=== PATIENT | female | born 1995 | race Caucasian/White ===

== ENCOUNTER 2017-07-08 19:20 | Inpatient (IN) ==
--- OUTSIDE RECORDS SUMMARY | 2017-07-08 16:59 | External Medical Summary | Continuity of Care Document ---
:1995 Author Organization [facility] Address [address] [place], [place] [id number] Phone Allergies, Adverse Reactions, Alerts Substance Reaction Severity Status No Known Drug Allergies Unknown Active Medications Medication Instructions Dosage Effective Status Comments Dates (start - stop) OneTouch Ultra2 check by Not Available - Active please provide kit Misc.(Non-Drug; meter suitable Combo Route) route for blood sugar BID, insurance--Dx fasting and 2 code: O24.419, hours after each gestational meal diabetes Lancets, Super - Active lancets to go Thin with meter given Blood Glucose test 1 Drop by Not Available - Active to go with meter Test strips Intradermal route provided. 4 times every day fasting and postprandial ORAL - Active TABLET Problems Condition Effective Dates (start - stop) Clinical Status Pre-existing diabetes, type 2, in - , third trimester Obesity complicating , third - trimester 32 weeks gestation of - Nicotine dependence, cigarettes, - uncomplicated Obesity complicating , first - trimester Encntr for suprvsn of normal first - preg, first trimester Less than 8 weeks gestation of - Thrombocytopenia, unspecified - Pre-existing diabetes, type 2, in - , third trimester Obesity complicating , third - trimester 33 weeks gestation of - Morbid (severe) obesity due to excess - calories Pre-exist diabetes, type 2, in - , second trimester 24 weeks gestation of - Gestational proteinuria, third - trimester Pre-existing diabetes, type 2, in - , third trimester Encntr for suprvsn of normal first - preg, third trimester 32 weeks gestation of - Gestational proteinuria, third - trimester Pre-existing diabetes, type 2, in - , third trimester Encntr for suprvsn of normal first - preg, third trimester 31 weeks gestation of - Pre-existing diabetes, type 2, in - , first trimester Obesity complicating , first - trimester Smoking (tobacco) complicating - , first trimester 13 weeks gestation of - Pre-exist diabetes, type 2, in - , second trimester Spotting complicating , - second trimester Obesity complicating , second - trimester 24 weeks gestation of - Pre-exist diabetes, type 2, in - , second trimester Spotting complicating , - second trimester Obesity complicating , second - trimester Endo, nutritional and metab diseases - comp preg, unsp tri Pre-exist diabetes, type 2, in - , second trimester 19 weeks gestation of - Pre-existing diabetes, type 2, in - , third trimester Spotting complicating , third - trimester Obesity complicating , third - trimester 28 weeks gestation of - Pre-existing diabetes, type 2, in - , third trimester 34 weeks gestation of - Pre-existing diabetes, type 2, in - , third trimester Obesity complicating , third - trimester Endo, nutritional and metab diseases - comp preg, third tri 29 weeks gestation of - Pre-existing diabetes, type 2, in - , third trimester Abnormal ultrasonic finding on - screening of mother 32 weeks gestation of - Pre-existing diabetes, type 2, in - , third trimester Oth dis of bld/bld-form org/immun - mechnsm comp preg, 3rd tri Endo, nutritional and metab diseases - comp preg, third tri 34 weeks gestation of - Pre-existing diabetes, type 2, in - , third trimester Obesity complicating , third - trimester Endo, nutritional and metab diseases - comp preg, third tri 31 weeks gestation of - Pre-existing diabetes, type 2, in - , third trimester 32 weeks gestation of - Pre-existing diabetes, type 2, in - , third trimester 33 weeks gestation of - Gestational diabetes mellitus in - , unsp control Spotting complicating , first - trimester Obesity complicating , first - trimester 10 weeks gestation of - Spotting complicating , first - trimester 9 weeks gestation of - Asthma Active GERD Active Depression Active Migraines Active Procedures Procedure Date biophys prfl w/o nstress test Results Test Name Date and Time Measure Units Reference Range Abnormal Flag Comments Unknown Advance Directives Directive Yes / No Effective Date File Name Unknown Encounters Encounter Practice Location Reason(s) Diagnoses Date Provider Care Team Description For Visit Members [facility] Pre-existing Sobbing In Womens diabetes, type 2, 2-201 formerly [facility], in , [address] Medical [address]22, trimesterOth dis [facility], of bld/bld-form Drive, [place], org/immun mechnsm [id number], comp preg, 3rd 120, [place] triZiyad Hernandez, tel:[phone] nutritional [place], [address] metab diseases [address], comp preg, third [place]. tri34 weeks tel:+1-31 gestation of [phone] [facility] Pre-existing Tyrel-2 Sobbing In Womens Ultrasound diabetes, type 2, 2 [facility], in , [address] third [email or web address] Medical 1522, weeks gestation [place], [place], [address] [id number], 120, [place], tel:+316 [place], [address], [place]. tel: [phone] [facility] Thrombocytopenia, Tyrel-1 Sobbing In Womens unspecifiedPre-ex [facility], isting diabetes, 8 700 [address] type 2, in Medical 1522, , [facility] [place] [place], complicating [id number], , third 120, [place] [email or web address] weeks Ziyad, tel:+ [place], [address], [place]. tel: [phone] [facility] Pre-existing Tyrel-1 Sobbing In Womens Ultrasound diabetes, type 2, Gian. Nathaniel FONTANA, in , 8 700 [address] third [email or web address] Medical 1522, weeks gestation [place], [address] [id number], 120, [place], tel:+316 [place], [address], [place]. tel: [phone] [facility] Pre-existing Tyrel-0 Sobbing In Womens diabetes, type 2, Gian. Nathaniel FONTANA, in , 8 700 [address] third Medical 1522, trimesterAbnormal Center [place], [place], finding on [address] , 120, [place] screening of [place], tel:[phone] [email or web address] [place] [address], [place]. tel: [phone] [facility] Pre-existing Tyrel-0 Sobbing In Womens Ultrasound diabetes, type 2, [facility], in , 8 700 [address] third [email or web address] Medical 1522, weeks gestation [place], [place], [address] [id number], 120, [place] Ziyad, tel:+316 [place], [address], [place]. tel: [phone] [facility] Gestational Tyrel-0 Sobbing In Womens proteinuria, 3- [facility], third 8 700 PO Box trimesterPre-exis Medical 1522, ting diabetes, [facility] [place], type 2, in [place], , third [id number], trimesterEncntr 120, [place] for suprvsn of Ziyad, tel:+316 normal first [place], preg, third [address], [email or web address] weeks [place]. gestation of tel:[phone] [facility] Pre-existing Tyrel-0 Sobbing In Womens Ultrasound diabetes, type 2, [facility], in , 8 700 [address] third Medical 1522, trimesterObesity Center [place], [place], , third [id number], [email or web address] weeks 120, [place] gestation of Ziyad, tel:+316 MD, 8437[address], [place]. tel: [phone] [facility] Gestational Dec-2 Sobbing In Womens proteinuria, [facility], third 7 700 PO Box trimesterPre-exis Medical 1522, ting diabetes, [facility], type 2, in [place], , third [id number], trimesterEncntr 120, [place] for suprvsn of [place], tel:+316 normal first [place], preg, third [address], [email or web address] weeks [place]. gestation of tel:[phone] [facility] Pre-existing Dec-2 Sobbing In Womens Ultrasound diabetes, type 2, [facility], in , 7 700 [address] third Medical 1522, trimesterObesity Center [place], , third [id number], trimesterEndo, 120, [place] nutritional and Ziyad, tel:[phone] metab diseases [place], comp preg, third [address], tri31 weeks [place]. gestation of tel:[phone] [facility] Pre-existing Dec-1 Sobbing Referring In Womens diabetes, type 2, [place]. Provider: Nathaniel FONTANA, in , 7 700 Gian [address] third Medical Sobbing L, 1522, trimesterObesity Center [address] [place] [address], [facility] [place], , third Suite Center [id number], trimesterEndo, 120, Drive US nutritional and [place], [address], tel: metab diseases [place], [place], comp preg, third [address], [place], [address]. tri29 weeks [place]. tel: gestation of tel: [phone] [facility] Pre-existing Dec-1 Sobbing In Womens Ultrasound diabetes, type 2, 8-201 [facility], in , 7 700 [address] third Medical 1522, trimesterSpotting [place], complicating [place], [place], , third [address] [id number], trimesterObesity 120, [place] complicating [place], tel: , third MD, [email or web address] weeks [address], gestation of [place]. tel: [phone] [facility] Morbid (severe) Nov-2 Sobbing In Womens obesity due to 0-201 [facility], excess 7 700 PO Box caloriesPre-exist Medical 1522, diabetes, type 2, [facility], in , Drive, [place], second [id number], weeks 120, [place] gestation of [place], [place]: [place], [address], [place]. tel: [phone] [facility] Pre-exist Nov-2 Sobbing In Womens Ultrasound diabetes, type 2, 0-201 [facility], in , 7 700 [address] second Medical 1522, trimesterSpotting Center [place], [facility] [place], , second [id number], trimesterObesity 120, [place] complicating Ziyad, tel: , second MD, [email or web address] weeks [address], gestation of [place]. tel: [phone] [facility] Pre-exist Oct-1 Sobbing Referring In Womens diabetes, type 2, 9-201 Gian. Provider: [facility], in , 7 700 Gian PO Box second Medical Sobbing L, 1522, trimesterSpotting Center [address] [place] [address], complicating [facility], [facility] [place], , second Suite Center [id number], trimesterObesity 120, Drive [place] complicating [place], [address], tel: , second MAUREEN, [place], trimesterEndo, [address], [place], [address]. nutritional and [place]. tel: metab diseases tel: [phone] comp preg, unsp [id number] tri [facility] Pre-exist Oct-1 Sobbing In Womens Ultrasound diabetes, type 2, [facility], in , 7 700 PO Box second Medical 1522, [email or web address] weeks [facility], gestation of [place], [place], [address] [id number], 120, [place] Ziy[place], [place]: [place], [address], [place]. tel: [phone] [facility] Pre-existing Sep-0 Sobbing In Womens diabetes, type 2, [facility], in , 7 700 PO Box first Medical 1522, trimesterObesity [place], [place], , first [address] [id number], trimesterSmoking 120, [place] (tobacco) Ziyad, tel: complicating MD, , first [address], [email or web address] weeks [place]. gestation of tel: [phone] [facility] Gestational Aug-1 Sobbing In Womens diabetes mellitus [facility], in , 7 700 [address] unsp Medical 1522, controlSpotting [place], , first [id number], trimesterObesity 120, [place] complicating [place], tel: , first MD, [email or web address] weeks [address], gestation of [place]. tel: [phone] [facility] Aug-1 Sobbing In Womens - [facility], 7 700 [address] Medical 1522, [place], [place], [address] [id number], 120, [place], [place]: [place], [address], [place]. tel: [phone] [facility] Spotting Aug-0 Sobbing In Womens complicating [facility], , first 7 700 PO Box trimester9 weeks Medical 1522, gestation of [place], [place], [address] [id number], 120, [place] Ziyad, tel: [place], [address], [place]. tel: [phone] [facility] Nicotine Sobbing In Womens dependence, 7-201 [facility] [place], cigarettes, 7 700 PO Jesus [facility] 1522, [facility] [place], , first Drive, [place], trimesterEncntr [id number], for suprvsn of 120, [place] normal first Ziyad, tel:+[phone] preg, first MAUREEN, [id number] trimesterLess [address], than 8 weeks [place]. gestation of tel: [phone] Family History Family Member Diagnosis Age At Onset Paternal Grandmother Uterine Cancer Paternal Grandfather Cardiovascular Disease Paternal Grandmother Thyroid Disorder Immunizations Vaccine Date Status Comments Tdap completed Source: New Immunization Record Influenza, injectable, completed Source: New Immunization Record quadrivalent, preservative free, 3 yrs or older Payers Payer name Insurance type Covered green party ID Authorization(s) [facility] - [id number] Medicaid [employer] - [id number] Medicaid [employer] - [place] [id number] Medicaid Social History Type Description Quantity Date Captured Unknown Vital Signs Date / Height Weight BMI Pulse Blood Temperature Respiratory Body Head BMI Time: Rate Pressure Rate Surface Circumference percentile Area Unknown Chief Complaint And Reason For Visit Unknown Chief Complaint And Reason For Visit Reason For Referral Reason For Referral Unknown Plan Of Care Date Type Action Status Referral Referred To: ordered Jaciel Dinh [address] [place] [address] Dr. JOHN Lee [facility] [place] Ordered: Referrals: Ophthalmology. Jaciel Dinh. Consult Appointment date/timeframe: 02/26/2017 Referral Referred To: ordered Jaciel Dinh [address] [place] [address] Dr. JOHN Lee [facility] [place] Ordered: Referrals: Ophthalmology. Jaciel Dinh. Location: [place]. Consult Appointment date/timeframe: 02/21/2017 Appointment Hermes Baker BOOKED Appointment Hermes Baker BOOKED Appointment Hermes Baker BOOKED Appointment Hermes Baker BOOKED Appointment Hermes Baker BOOKED Appointment Hermes Baker BOOKED Future Order: Radiology Order Biophysical Profile without NST Ordered ([id number]) Future Order: Radiology Order Ultrasound, OB Limited ([id number]) Ordered Future Order: Radiology Order Complete OB Ultrasound > 14 Ordered Weeks ([id number]) Future Order: Radiology Order Ultrasound OB Follow-up ([id number]) Ordered Future Order: Radiology Order Biophysical Profile without NST Ordered ([id number]) Future Order: Radiology Order Biophysical Profile without NST Ordered ([id number]) Future Order: Radiology Order Biophysical Profile without NST Ordered ([id number]) Future Order: Radiology Order Biophysical Profile without NST Ordered ([id number]) Future Order: Radiology Order Biophysical Profile without NST Ordered ([id number]) Future Order: Radiology Order Ultrasound OB Follow-up ([id number]) Ordered Future Order: Radiology Order Biophysical Profile without NST Ordered ([id number]) Date Type Problem Goal Intervention Status Start Date Unknown. History Of Present Illness Encounter Date Complaint History Of Present Illness This patient has no known history of present illness Functional Status Encounter Date Functional Assessment Cognitive Assessment Unknown Medications Administered Medication Instructions Dosage Effective Dates (start - stop) Status Comments Drug Treatment Unknown Instructions Date Instruction Additional Information HIV and other routine tests risk factors identified by history anticipated course of care nutrition and weight gain counseling, special diet toxoplasmosis precautions (cats / raw meat) sexual activity exercise indications for ultrasound influenza vaccine environmental / work hazards travel tobacco (ask, advise, assess, assist and arrange) alcohol illicit / recreational drugs use of any medications (including supplements, vitamins, herbs, OTC drugs) smoking counseling domestic violence seat belt use childbirth classes / hospital facilities hospital registration genetic testing new ob handbook risks
--- OUTSIDE RECORDS SUMMARY | 2017-07-08 16:59 | External Medical Summary | Continuity of Care Document ---
:1995 Author Organization [facility] Address [address] [place], [place] [id number] Phone Allergies, Adverse Reactions, Alerts Substance Reaction [...] Effective Dates (start - stop) Clinical Status Nicotine dependence, cigarettes, - uncomplicated Obesity complicating , first - trimester Encntr for suprvsn of normal first - preg, first trimester Less than 8 weeks gestation of - Gestational diabetes mellitus in - , unsp control Spotting complicating , first - trimester Obesity complicating , first - trimester 10 weeks gestation of - Spotting complicating , first - trimester 9 weeks gestation of - Asthma Active GERD Active Depression Active Migraines Active Procedures Procedure Date OB US < 14 WKS, SINGLE FETUS Initial OB Visit No Charge Results Test Name Date and Time Measure Units Reference Range Abnormal Flag Comments Panel Description: Glucose [Mass/volume] in Serum or Plasma --1 hour post 50 g glucose PO GLUCOSE, 161 mg/dL <140 H One hour value of > GESTATIONAL SCREEN 11:00:00 yh=214 mg/dL indicatesthe (50G)-140 CUTOFF need for a diagnostic 75 g dose 2-hour or100 g dose 3-hour oral glucose tolerance test;patient fasting is required.Test performed at [facility] [id number] [place] [id number]: IWONA MANUEL DO,MPH Panel Description: CHLAMYDIA/N. GONORRHOEAE RNA, TMA CHLAMYDIA NOT DETECTED NOT DETECTED N TRACHOMATIS RNA, 09:05:00 TMA NEISSERIA NOT DETECTED NOT DETECTED N GONORRHOEAE RNA, 09:05:00 TMA [id number] SEE NOTE This test was 09:05:00 performed using the APTIMA COMBO2 Assay([employer] The analytical performance characteristics of this assay, when used to test SurePath specimens havebeen determined by [facility]. Test performed at [facility] [address] [id number]: IWONA MANUEL DO,MPH Advance Directives Directive Yes / No Effective Date File Name Unknown Encounters Encounter Practice Location Reason(s) Diagnoses Date Provider Care Description For Visit Team Members Bassam [place] Gestational diabetes Aug-1 Sobbing In Womens mellitus [place] [facility] [place], , unsp 7 700 [address] controlSpotting Medical 1522, complicating [facility], [place], [place], trimesterObesity Suite , complicating 120, [place] , first Ziyad, tel:+ [email or web address] [place], [place] [address], [place]. tel: [phone] Bassam [place] Aug-1 Sobbing In Womens [facility] [place], 7 700 [address] Medical 1522, [place], [place], [address] [id number], 120, [place] Ziyad, tel:+ [place], [address], [place]. tel: [phone] Bassam [place] Spotting complicating Aug-0 Sobbing In Womens , first [facility] [place], trimester9 weeks 7 700 PO Box gestation of Medical 1522, Center [place], [place], [address] [id number], 120, [place], [place]: [place], [address], [place]. tel: [phone] Bassam [place] Nicotine dependence, Sobbing In Womens cigarettes, 7-[address], uncomplicatedObesity 7 700 [address] Box complicating Medical 1522, , first Center [place], trimesterEncntr for [place], [place], suprvsn of normal [id number], first preg, first 120, [place] trimesterLess than 8 [place], tel:+ [place], [address], [place]. tel: [phone] Family History Family Member Diagnosis Age At Onset Paternal Grandmother Uterine Cancer Paternal Grandfather Cardiovascular Disease Paternal Grandmother Thyroid Disorder Immunizations Vaccine Date Status Comments Unknown Payers Payer name Insurance type Covered green party ID Authorization(s) [facility] - [id number] Medicaid Social History Type Description Quantity Date Captured Alcohol Use Details Caffeine Use Details Tobacco Use Status Heavy cigarette smoker (20-39 cigs/day) Smoking Status Current every day smoker Smoking Tobacco Use Cigarette: No Details Available Cigarette: 1 Packs per day Details Vital Signs Date / Height Weight BMI Pulse Blood Temperature Respiratory Body Head BMI Time: Rate Pressure Rate Surface Circumference percentile Area 174.00 35.1 lbs 4 9:02 kg/m AM eter (2) Chief Complaint And Reason For Visit Unknown Chief Complaint And Reason For Visit Reason For Referral Reason For Referral Unknown Plan Of Care Date Type Action Status Appointment Hermes Baker BOOKED Appointment Hermes Baker BOOKED Date Type Problem Goal Intervention Status Start [...]
--- OUTSIDE RECORDS SUMMARY | 2017-07-08 17:01 | External Medical Summary | Continuity of Care Document ---
:1995 Author Organization [facility] Address [address] [place], [place] [id number] Phone Allergies, Adverse Reactions, Alerts Substance Reaction [...] Effective Dates (start - stop) Clinical Status Pre-exist diabetes, type 2, in - , second trimester 19 weeks gestation of - Nicotine dependence, cigarettes, - uncomplicated Obesity complicating , first - trimester Encntr for suprvsn of normal first - preg, first trimester Less than 8 weeks gestation of - Pre-existing diabetes, type 2, in - , first trimester Obesity complicating , first - trimester Smoking (tobacco) complicating - , first trimester 13 weeks gestation of - Pre-exist diabetes, type 2, in - , second trimester Spotting complicating , - second trimester Obesity complicating , second - trimester Endo, nutritional and metab diseases - comp preg, unsp tri Gestational diabetes mellitus in - , unsp control Spotting complicating , first - trimester Obesity complicating , first - trimester 10 weeks gestation of - Spotting complicating , first - trimester 9 weeks gestation of - Asthma Active GERD Active Depression Active Migraines Active Procedures Procedure Date Ultrasound exam of preg uterus, complete Results Test Name Date and Time Measure Units Reference Range Abnormal Flag Comments Unknown Advance Directives Directive Yes / No Effective Date File Name Unknown Encounters Encounter Practice Location Reason(s) Diagnoses Date Provider Care Team Description For Visit Members Bassam [place] Pre-exist Oct-1 Sobbing Referring In Womens diabetes, type 2, [place]. Provider: Nathaniel FONTANA, in , 7 700 [place] [address] second Medical Sobbing L, 1522, trimesterSpotting Center [address] [place], [place] [address]icating [facility], , second Suite Center [id number], trimesterObesity 120, Drive [place] complicating [facility] [address], tel: , second [place], [place], [place]End[place], [address], [place], [address]. nutritional and [place]. tel: metab diseases tel: [phone] comp preg, unsp [id number] tri Bassam [place] Pre-exist Oct-1 Sobbing In Womens Ultrasound diabetes, type 2, [place]. Nathaniel FONTANA, in , 7 700 [address] second Medical 1522, [email or web address] weeks [facility], gestation of [place], [place], [address] [id number], 120, [place], [place], [address], [place]. tel: [phone] Bassam [place] Pre-existing Sep-0 Sobbing In Womens diabetes, type 2, [place]. Nathaniel FONTANA, in , 7 700 [address] first Medical 1522, trimesterObesity [facility], complicating [place], [place], , first [address] [id number], trimesterSmoking 120, [place] (tobacco) [place], tel:+ complicating [place], , first [address], [email or web address] weeks [place]. gestation of tel: [phone] Bassam [place] Gestational Aug-1 Sobbing In Womens diabetes mellitus 5-201 [place], in , 7 700 [address] unsp Medical 1522, controlSpotting [facility], complicating [place], [place], , first [id number], trimesterObesity 120, [place] complicating [place], tel: , first [place], [email or web address] weeks [address], gestation of [place]. tel: [phone] Bassam [place] Aug-1 Sobbing In Womens 1-201 [place], 7 700 [address] Medical [address], [place], [place], [id number], 120, [place], [place], [address], [place]. tel: [phone] Bassam [place] Spotting Aug-0 Sobbing In Womens complicating 8-201 [place], , first 7 700 PO [address] trimester9 weeks Medical 1522, gestation of [facility], [place], [place], [address] [id number], 120, [place], [place], [address], [place]. tel: [phone] Bassam [place] Nicotine Adam-2 Sobbing In Womens dependence, 7-201 [place], cigarettes, 7 700 [address] uncomplicatedObes Medical 1522, ity complicating [facility], , first Drive, [place], trimesterEncntr [address] [id number], for suprvsn of 120, [place] normal first [place], tel: preg, first [place], trimesterLess [address], than 8 weeks [place]. gestation of tel: [phone] Family History Family Member Diagnosis Age At Onset Paternal Grandmother Uterine Cancer Paternal Grandfather Cardiovascular Disease Paternal Grandmother Thyroid Disorder Immunizations Vaccine Date Status Comments Influenza, injectable, completed Source: New Immunization Record quadrivalent, preservative free, 3 yrs or older Payers Payer name Insurance type Covered libertarian ID Authorization(s) [facility] - [id number] Medicaid [facility] - [id number] Medicaid Social History Type Description Quantity Date [...] Status Referral Referred To: ordered Jaciel Dinh [address] [place] [address] Dr. JOHN Lee [address] [place] Ordered: Referrals: Ophthalmology. Jaciel Dinh. Consult Appointment date/timeframe: 02/26/2017 Referral Referred To: ordered Jaciel Dinh [address] [place] [address] Dr. JOHN Lee [address] [place] Ordered: Referrals: Ophthalmology. Jaciel Dinh. Location: [place]. Consult Appointment date/timeframe: 02/21/2017 Appointment Samuel, Dikrlir BOOKED Appointment Samuel, Taylir BOOKED Appointment Samuel, Taylir BOOKED Appointment Samuel, Taylir BOOKED Appointment Samuel, Taylir BOOKED Appointment Samuel, Taylir BOOKED Appointment Samuel, Taylir BOOKED Appointment Samuel, Taylir BOOKED Appointment Samuel, Taylir BOOKED Appointment Samuel, Taylir BOOKED Appointment Samuel, Taylir BOOKED Appointment Samuel, Taylir BOOKED Appointment Samuel, Taylir BOOKED Appointment Samuel, Taylir BOOKED Appointment Samuel, Taylir BOOKED Appointment Samuel, Taylir BOOKED Appointment Samuel, Taylir BOOKED Appointment Samuel, Taylir BOOKED Appointment Samuel, Taylir BOOKED Appointment Samuel, Taylir BOOKED Future Order: Radiology Order Complete OB Ultrasound > 14 Ordered Weeks ([id number]) Date Type Problem Goal Intervention Status Start [...]
--- OUTSIDE RECORDS SUMMARY | 2017-07-08 17:01 | External Medical Summary | Continuity of Care Document ---
:1995 Author Organization [facility] Address [address] [place], [place] [phone] Phone Allergies, Adverse Reactions, Alerts Substance Reaction [...] Depression Active Migraines Active Procedures Procedure Date Unknown Results Test Name Date and Time Measure Units Reference Range Abnormal Flag Comments Unknown Advance Directives Directive Yes / No Effective Date File Name Unknown Encounters Encounter Practice Location Reason(s) Diagnoses Date Provider Care Description For Visit Team Members Bassam Lackey Gestational diabetes Aug-1 Sobbing In Womens mellitus in 5 [place], , unsp 7 700 PO [address] controlSpotting Medical 1522, complicating Center [place], , first [facility], [place], trimesterObesity [id number], complicating 120, [place] , first [place], tel:+ [email or web address] weeks [place], [place] [address], [place]. tel: [phone] [facility] [place] Aug-1 Sobbing In Womens 1-201 [place], 7 700 [address] Medical [address], [place], [place], [address] [id number], 120, [place], tel:+316 [place], [address], [place]. tel: [phone] [facility] [place] Aug-1 Sobbing In Womens 0-201 [place], 7 700 [address] Medical [address], [place], [place], [address] [id number], 120, [place], tel:+ [place], [address], [place]. tel: [phone] [facility] [place] Spotting complicating Aug-0 Sobbing In Womens , first 8- [place], trimester9 weeks 7 700 PO Box gestation of Medical 1522, [place], [place], [address] [id number], 120, [place], tel:+ [place], [address], [place]. tel: [phone] [facility] [place] Nicotine dependence, Sobbing In Womens cigarettes, [place], uncomplicatedObesity 7 700 [address] Box complicating Medical 1522, , first [facility], trimesterEncntr for [place], [place], suprvsn of normal [address] [id number], first preg, first 120, [place] trimesterLess than 8 [place], tel:+ [place] [address], [place]. tel: [phone] Family History Family Member Diagnosis Age At Onset Paternal Grandmother Uterine Cancer Paternal Grandfather Cardiovascular Disease Paternal Grandmother Thyroid Disorder Immunizations Vaccine Date Status Comments Unknown Payers Payer name Insurance type Covered constitution party ID Authorization(s) [facility] - [id number] Medicaid Social History Type Description Quantity Date Captured Unknown Vital Signs Date / Height Weight BMI Pulse Blood Temperature Respiratory Body Head BMI Time: Rate Pressure Rate Surface Circumference percentile Area Unknown Chief Complaint And Reason For Visit Unknown Chief Complaint And Reason For Visit Reason For Referral Reason For Referral Unknown Plan Of Care Date Type Action Status Appointment Samuel Deborahhsamar BOOKED Date Type Problem Goal Intervention Status [...]
--- OUTSIDE RECORDS SUMMARY | 2017-07-08 17:01 | External Medical Summary | Continuity of Care Document ---
:1995 Author Organization [facility] Address [address] [place], [place] [id number] Phone Allergies, Adverse Reactions, Alerts Substance Reaction [...] second trimester 19 weeks gestation of - Gestational diabetes mellitus [...] Reference Range Abnormal Flag Comments Panel Description: Thyroxine (T4) free [Mass/volume] in Serum or Plasma T4, FREE 14:46:00 1.0 ng/dL 0.8-1.8 N Test performed at [facility] [id number] [place] [address]Cvdqzazh: IWONA MANUEL DO,MPH Panel Description: Thyrotropin [Units/volume] in Serum or Plasma TSH 14:46:00 0.35 mIU/L L Reference Range > or=20 Years 0.40-4.50 Ranges First trimester 0.26-2.66 Second trimester 0.55-2.73 Third trimester 0.43-2.91Test performed at [facility] [place] [id number]: IWONA MANUEL DO,MPH Panel Description: Triiodothyronine (T3) Free [Mass/volume] in Serum or Plasma T3, FREE 14:46:00 3.1 pg/mL 2.3-4.2 N REPORT COMMENT:COPY TO DR SHORE:NOTest performed at [facility] [id number] [place] [id number]: IWONA MANUEL DO,MPH Advance Directives Directive Yes / No Effective Date File Name Unknown Encounters Encounter Practice Location Reason(s) Diagnoses Date Provider Care Team Description For Visit Members Bassam Lackey Pre-exist Sobbing Referring In Womens diabetes, type 2, 9-201 [place]. Provider: Health [place], in , 7 700 [facility] Box second Medical Sobbing L, 1522, trimesterSpotting Center [address] [place], complic[address], Medical [place], , second Suite Center [id number], trimesterObesity 120, Drive [place] complicating [place], [address], tel: , second [place], [place], trimesterEndo, [address], [place], [address]. nutritional and [place]. tel: metab diseases tel: [phone] comp preg, unsp [id number] tri [facility] [place] Pre-exist Oct-1 Sobbing In Womens Ultrasound diabetes, type 2, [place], in , 7 700 [address] second Medical 1522, [email or web address] weeks [facility], gestation of [place], [place], [address] [id number], 120, [place], [place]: [place], [address], [place]. tel: [phone] Bassam Lackey Oct-1 Sobbing In Womens [place], 7 700 [address] Medical [address], [place], [place], [address] [id number], 120, [place], [place], [address], [place]. tel: [phone] Bassam Lackey Pre-existing Sep-0 Sobbing In Womens diabetes, type 2, [place], in , 7 700 PO Box first Medical 1522, trimesterObesity [place], [place], , first Suite , trimesterSmoking 120, [place] (tobacco) [place], tel: complicating [place], , first [address], weeks [place]. gestation of tel: [phone] Bassam Lackey Gestational Aug-1 Sobbing In Womens diabetes mellitus [place], in , 7 700 [address] unsp Medical 1522, controlSpotting [place], , first [address] [id number], trimesterObesity 120, [place] complicating [place], tel: , first [place], [email or web address] weeks [address], gestation of [place]. tel: [phone] Bassam [place]key Aug-1 Sobbing In Womens [place], 7 700 [address] Medical [address], [place], [place], [address] [id number], 120, [place], [place]: [place], [address], [place]. tel: [phone] Bassam [place] Spotting Aug-0 Sobbing In Womens complicating [place], , first 7 700 PO Box trimester9 weeks Medical 1522, gestation of [facility], [place], [place], [address] [id number], 120, [place], [place], [address], [place]. tel: [phone] Bassam [place] Nicotine Dec- Sobbing In Womens dependence, [place], cigarettes, 7 700 [address] Box uncomplicatedObes Medical 1522, ity complicating Center [place], , first [place], [place], trimesterEncntr [address] [id number], for suprvsn of 120, [place] normal first [place], tel: preg, first [place], trimesterLess [address], than 8 weeks [place]. gestation of tel: [phone] Family History Family Member Diagnosis Age At Onset Paternal Grandmother Uterine Cancer Paternal Grandfather Cardiovascular Disease Paternal Grandmother Thyroid Disorder Immunizations Vaccine Date Status Comments Influenza, injectable, completed Source: New Immunization Record quadrivalent, preservative free, 3 yrs or older Payers Payer name Insurance type Covered green party ID Authorization(s) [facility] - [id number] Medicaid [facility] [id number] Medicaid Social History Type Description Quantity Date [...] Status Referral Referred To: ordered Jaciel Dinh Dr. [address] [place] Ordered: Referrals: Ophthalmology. Jaciel Dinh. Consult Appointment date/timeframe: 02/26/2017 Referral Referred To: ordered Jaciel Dinh [facility] Dr. JOHN Lee [address] [place] Ordered: Referrals: Ophthalmology. Jaciel Dinh. Location: [place]. Consult Appointment date/timeframe: 02/21/2017 Appointment Hermes BakerED Appointment Samuel Dirklir BOOKED Appointment Samuel Dirklir BOOKED Appointment Samuel Dirklir BOOKED Appointment Samuel Dirklir BOOKED Appointment Samuel Dirklir BOOKED Appointment Samuel Dirklir BOOKED Appointment Samuel Dirklir BOOKED Appointment Samuel Dirklir BOOKED Appointment Samuel Dirklir BOOKED Appointment Samuel Dirklir BOOKED Appointment Samuel Dirklir BOOKED Appointment Samuel Dirklir BOOKED Appointment Samuel Dirklir BOOKED Appointment Samuel Dirklir BOOKED Appointment Samuel Dirklir BOOKED Appointment Samuel Dirkaleksr BOOKED Appointment Samuel Dirkaleksr BOOKED Appointment Samuel Dirklir BOOKED Appointment Samuel Deborahr BOOKED Future Order: Radiology Order Complete OB Ultrasound > 14 Ordered Weeks ([id number]) Date Type Problem Goal Intervention Status Start [...]
[2017-07-08] MEDS ORDERED: LIDOCAINE 1% (10mg/ml) 2mL INJ PF SDV ID PRN ×2 (19:38→19:47)
[2017-07-08] MEDS ORDERED: CALCIUM CARBONATE Chewable 500mg TABLET PO PRN (19:38)
[2017-07-08] MEDS ORDERED: LR 1,000 ML IV PRN (19:38)
[2017-07-08] MEDS ORDERED: CARBOPROST 250 MCG/ML INJECTION IM PRN (19:38)
[2017-07-08] MEDS ORDERED: MAG-AL + SIM ORAL LIQUID 30ml PO PRN (19:38)
[2017-07-08] MEDS ORDERED: METHYLERGONOVINE 0.2 MG/ML INJECTION IM PRN (19:38)
[2017-07-08] MEDS ORDERED: ACETAMINOPHEN 500 MG TABLET PO PRN (19:38)
[2017-07-08] MEDS ORDERED: ZOLPIDEM 5 MG TABLET PO PRN (19:42)
[2017-07-08] MEDS ORDERED: SALINE FLUSH 10ml SYRINGE IV PRN (19:42)
[2017-07-08] MEDS ORDERED: HYDROCODONE/APAP 5mg/325mg TABLET PO PRN (19:42)
[2017-07-08] MEDS ORDERED: CALCIUM GLUCONATE 4.65mEq/10ml INJECTION IV PRN (19:47)
[2017-07-08] MEDS ORDERED: CITRIC ACID/SODIUM CITRATE 30ml PO PRN (19:47)
[2017-07-08] MEDS ORDERED: MAGNESIUM SULFATE 6gm PREMIX 6 GM/50 ML BAG IV ONE (20:00)
[2017-07-08] MEDS: MAGNESIUM SULFATE DRIP 20 GM/500 ML BAG IV SCH (20:36)
[2017-07-08 21:18] VITALS: BMI 41.5
--- NOTE | 2017-07-08 21:29 | OB/GYN Progress Note ---
- Pain Control Pain control: Tolerating well - Pelvic Exam Dilation (cm): 1 Effacement (%): 60 station: -3 Amniotic membrane status: Intact - Contractions Monitor mode: External Contraction frequency: 3 Contraction pattern: Regular Contraction intensity: Mild - Status status: Category l - Assessment and Plan Assessment: induction ongoing Comments: Preeclampsia with sever features. Elevated BP along with proteinuria and elevated LFT. Thrombocytopenia C/W with 05/2017 132 and then 151 06/2017. Discussed diagnosis including risk of eclampsia, HEELP. Discussed R/B/A to IOL questions elicited and answered. - FB for cervical ripening - Pitocin IOL to start in am - MGSO4 for seizure prophylaxis -ANCS for prematurity -Repeat lab q 6 hours until delivery, no NSIADS after delivery, will treat BP greater than 160/105, APLS, TSH, UDOA Pregestational DM non insulin dependent, 2 [address] PP tonclement and Dr. Cross for orders in am.
[2017-07-08] MEDS ORDERED: BETAMETHASONE 30 MG/5 ML INJECTION IM SCH (21:45)
[2017-07-09] MEDS ORDERED: OXYTOCIN DRIP 30 UNIT/500 ML ML IV PRN (05:00)
[2017-07-09] MEDS ORDERED: AMPICILLIN 2 GM in NS 100 ML IV ONE (05:00)
[2017-07-09] MEDS ORDERED: D5LR 1,000 ML IV PRN (05:00)
[2017-07-09] MEDS: MAGNESIUM SULFATE DRIP 20 GM/500 ML BAG IV SCH ×2 (06:00→15:30)
--- NOTE | 2017-07-09 08:43 | OB/GYN Progress Note ---
- Pain Control Pain control: Tolerating well - Pelvic Exam Dilation (cm): 3 Effacement (%): 60 station: -3 Amniotic membrane status: Intact - Contractions Monitor mode: External Contraction frequency: 3 Contraction pattern: Irregular Contraction intensity: Mild - Status status: Category l - Assessment and Plan Assessment: induction ongoing Plan: continuous present management Comments: FB out, Pitocin at 14 unit. AROM clear fluid, IUPC placed. PIH lab reviewed, continue current cares.
[2017-07-09] MEDS ORDERED: AMPICILLIN 1 GM in NS 100 ML IV SCH (09:00)
[2017-07-09] MEDS ORDERED: LABETALOL 100mg/20ml INJECTION IVP ONE ×2 (10:05→10:15)
[2017-07-09] MEDS ORDERED: ROPIVACAINE 1% 10MG/ML INJ 200 MG, SUFentanil 50 MCG in NS 100 ML EPI PRN (10:08)
[2017-07-09] MEDS ORDERED: ONDANSETRON 4 MG/2 ML INJECTION IVP PRN ×2 (10:08→18:14)
[2017-07-09] MEDS ORDERED: NALOXONE 0.4 MG/ML INJECTION IVP PRN (10:08)
[2017-07-09] MEDS ORDERED: DiphenhydrAMINE 50 MG/ML INJECTION IVP PRN (10:08)
--- NOTE | 2017-07-09 10:13 | Anesthesia Preoperative Report ---
Anesthesia Epidural/Spinal Rec - Date and Time Date: 07/09/17 Preoperative Diagnosis: PIH and gestational diabetes Procedure: Labor Epidural Plan: Epidural - Vital Signs NPO since: 429 /Para: P:0 Heart Rate: 125 - Medictaions & Allergies Inpatient Medications: Current Medications Acetaminophen (Tylenol) 500 - 1,000 mg PO Q4H PRN PRN Reason: Pain Last Admin: 07/08/17 22:53 Dose: 1,000 mg Hydrocodone Bitart/Acetaminophen (Blanco 5/325) 1 - 2 tab PO Q4H PRN PRN Reason: Pain Al Hydroxide/Mg Hydroxide (Maalox Plus) 30 ml PO Q3H PRN PRN Reason: Indigestion Betamethasone Acet/Betameth SodPhos (Celestone Soluspan) 12 mg IM O AURA Stop: 07/09/17 21:33 Last Admin: 07/08/17 22:52 Dose: 12 mg Calcium Carbonate (Tums) 500 - 1,000 mg PO Q2H PRN PRN Reason: Indigestion Calcium Gluconate (Calcium Gluconate) 4.65 meq IV O PRN Carboprost Tromethamine (Hemabate) 250 mcg IM O PRN PRN Reason: .Downtime Citric Acid/Sodium Citrate (Oracit) 30 ml PO Q2H PRN Diphenhydramine HCl (Benadryl) 25 - 50 mg IVP Q3H PRN PRN Reason: Itching Lactated Ringer's (Lactated Ringers) 1,000 mls @ 999 mls/hr IV .Q1H1M PRN Last Admin: 07/08/17 21:15 Dose: 999 mls/hr Magnesium Sulfate (Magnesium Sulfate Drip) 20 gm in 500 mls @ 50 mls/hr IV .Q10H AURA PRN Reason: 2 G/HR Last Infusion: 07/09/17 05:10 Dose: Infused Dextrose/Lactated Ringer's (Dextrose 5%-Lactated Ringers) 1,000 mls @ 125 mls/ hr IV .Q8H PRN PRN Reason: Labor Last Admin: 07/09/17 05:00 Dose: 125 mls/hr Oxytocin (Pitocin Drip) 30 unit in 500 mls @ 2 mls/hr IV .Q24H PRN; Protocol PRN Reason: Induction/Augmentation Last Admin: 07/09/17 04:57 Dose: 2 mls/hr Ampicillin Sodium 1 gm/ Sodium (Chloride) 100 mls @ 200 mls/hr IV Q4H AURA Ropivacaine 200 mg/ Sufentanil Citrate 50 mcg/ Sodium Chloride 121 mls @ 10 mls /hr EPI PRN PRN PRN Reason: Protocol Labetalol HCl (Trandate) 20 mg IVP O ONE Stop: 07/09/17 10:06 Lidocaine HCl (Xylocaine-Mpf 1% Vial) 0.2 mg ID O PRN PRN Reason: IV Start Lidocaine HCl (Xylocaine-Mpf 1% Vial) 1 mg ID PRN PRN PRN Reason: IV Start Methylergonovine Maleate (Methergine) 0.2 mg IM O PRN Misoprostol (Cytotec) 800 mcg AL ONCE PRN Naloxone HCl (Narcan) 0.1 mg IVP Q2M PRN PRN Reason: Respiratory distress Ondansetron HCl (Zofran) 4 mg IVP Q6H PRN PRN Reason: Nausea &/or vomiting Sodium Chloride (Iv Flush) 10 - 80 ml IV PRN PRN PRN Reason: Flushing Zolpidem Tartrate (Ambien) 5 mg PO O PRN PRN Reason: Insomnia Last Admin: 07/08/17 22:53 Dose: 5 mg Allergies/Adverse Reactions: Allergies Allergy/AdvReac Type Severity Reaction Status Date / Time varenicline [From Chantix] Allergy sucidal Verified 07/01/17 13:11 thoughts - Home Medications Home Medications: Home Medications Medication Instructions Recorded Confirmed Type tab PO DAILY tab 02/14/17 07/01/17 History vitamin,calcium,kqrkbrhf-zrzq-qszfh acid tablet aspirin 81 mg tablet,delayed 81 mg PO DAILY 05/30/17 07/01/17 History release Glucophage (metformin) 500 mg 500 mg PO QID tab 07/01/17 History tablet Tylenol PRN 07/08/17 History - Medical History Respiratory: Reports: Asthma (has inhaler) Cardiovascular: Reports: Hypertension Gastrointestional: Reports: Gastroesophageal Reflux Disease, Morbid Obesity Neuro/Musculoskeletal: Reports: Depression (off meds since 2016) Renal/Endocrine: Reports: Diabetes Mellitus Type 2 (gestational diabetes with blood sugar of 101), Other (gestational diabetes) Other History: Reports: Now - Surgical History Musculoskeletal Surgery/Tx: Reports: Carpal Tunnel Release (bilateral 2017) Reproductive Surgery/Treatment: DENIES: Section Anesthesia Reactions: None Hx Family Anesthesia Reaction: No History of Motion Sickness: No - Social History Smoking Status: Former smoker Second Hand Exposure: No Substance Use Type: does not use Alcohol Intake: former Alcohol Intake Frequency: does not drink Hx Chewing Tobacco Use: No - Pertinent Findings Lab Data: CBC and BMP 07/09/17 05:46 07/09/17 05:46 BMP 07/08/17 07/08/17 07/09/17 17:15 22:56 05:46 Sodium 138 137 135 Potassium 3.8 3.8 4.0 Chloride 108 H 105 106 Carbon Dioxide 22 20 L 19 L BUN 9.0 8.0 7.0 Creatinine 0.5 L 0.5 L 0.5 L Glucose 83 91 196 H Calcium 9.6 9.3 8.4 D Liver Function 07/08/17 07/08/17 07/09/17 Range/Units 17:15 22:56 05:46 Total Bilirubin < 0.10 L < 0.10 L 0.20 (0.20-1.30) MG/DL AST 29 31 36 (14-36) U/L ALT 62 H 59 H 68 H (9-52) U/L Alkaline Phosphatase 176 H 185 H 196 H (38-126) U/L Albumin 3.6 3.7 3.6 (3.5-5.0) G/DL - Physical Exam Respiratory Exam: lungs clear Cardiovascular Exam: regular rate and rhythm - Airway Assessment Mallampati Score: II TMD: 3 Fingerbreadths Neck Extension: fair Overall Assessment: may be difficult intubation - ASA ASA Score: 3 - Discussion Discussion: Discussed risks/options/alternatives of anesthesia and questions answered. Patient consents. Nursing pain assessment noted. Anesthesia Discussion: family member Attestation Statement: Prior to the delivery of any anesthetic medication, I examined the patient, developed the plan, obtained the patient's consent and discussed the risk and benefits of the procedure with the patient/guardian.
--- NOTE | 2017-07-09 11:05 | OB/GYN Progress Note ---
- Pain Control Pain control: Epidural - Pelvic Exam Dilation (cm): 5 Effacement (%): 80 station: -3 Amniotic membrane status: Ruptured - Contractions Monitor mode: Internal Contraction frequency: 2 Contraction pattern: Irregular Contraction intensity: Strong/Firm - Status status: Category l - Assessment and Plan Assessment: induction ongoing
[2017-07-09] MEDS ORDERED: FAMOTIDINE PB 20 MG/50 ML BAG IV ONE ×2 (12:57→13:01)
[2017-07-09] MEDS ORDERED: CITRIC ACID/SODIUM CITRATE 30ml PO ONE ×2 (12:57→13:01)
[2017-07-09] MEDS ORDERED: CEFAZOLIN PREMIX (MC ONLY) 2 GM/50 ML BAG IV ONE (12:57)
[2017-07-09] MEDS ORDERED: CEFAZOLIN 1 G INJECTION IVP ONE (12:57)
[2017-07-09] MEDS ORDERED: AZITHROMYCIN IV 500 MG in NS 250ml 250 ML IV ONE (12:57)
[2017-07-09] MEDS ORDERED: TRANEXAMIC ACID 1,000 MG in NS 100 ML IV ONE (13:01)
[2017-07-09] MEDS ORDERED: LIDOCAINE 2%/EPI 1:200,000 20ml SDV PF ONE (13:13)
[2017-07-09] MEDS: CEFAZOLIN PREMIX (MC ONLY) 2 GM/50 ML BAG IV ONE (13:14)
[2017-07-09] MEDS ORDERED: MORPHINE SULFATE PF 5mg/10ml INJ (Duramorph) ONE (13:16)
[2017-07-09] MEDS ORDERED: ONDANSETRON 4 MG/2 ML INJECTION ONE (13:49)
--- NOTE | 2017-07-09 14:12 | Operative Note ---
Operative Note - Date of Operation Date of Operation: 07/09/17 - General : 1 Estimated or Known Gestational Age (weeks): 35 Estimated or Known Gestational Age (days): 6 - Preoperative Diagnosis Nonreassuring FHT Preoperative Diagnosis: Severe preeclampsia DM type 2 Obesity - Postoperative Diagnosis same as preoperative - Procedure Primary - Surgeon Surgeon: Gian Eddy DO - Costumed Character Entertainer OB Costumed Character Entertainer: Delilah Angeles MD - Anesthesia Anesthesia Provider: Garfield Fuller CRNA - Complications Complications: None - Estimated Blood Loss Estimated Blood Loss:: 600 - Findings Findings: viable female - APGARS : 6/6/9 - Weight [place] Weight (grams): 2304 - [place] Name Name: Julita - Indications Indications: nonreasuring FHT, Failed IOL - Description of Procedure Description of Procedure: REF# [id number] Report ID [id number]
[2017-07-09] MEDS ORDERED: HYDROCORTISONE 2.5% CREAM 30gm RECTALLY PRN (14:34)
[2017-07-09] MEDS ORDERED: NALOXONE 2 MG/2 ML INJECTION PFS IVP PRN (14:34)
[2017-07-09] MEDS ORDERED: CALCIUM CARBONATE Chewable 500mg TABLET PO PRN (14:34)
[2017-07-09] MEDS ORDERED: SIMETHICONE 80 MG CHEWABLE TABLET PO PRN (14:34)
[2017-07-09] MEDS ORDERED: DiphenhydrAMINE 25 MG CAPSULE PO PRN (14:34)
[2017-07-09] MEDS ORDERED: OXYTOCIN DRIP 30 UNIT/500 ML ML IV SCH (14:34)
[2017-07-09] MEDS ORDERED: OXYTOCIN BOLUS BAG 30 UNIT/500 ML ML IV SCH (15:15)
[2017-07-09] MEDS: IBUPROFEN 800 MG TABLET PO PRN ×2 (15:39→23:55)
[2017-07-09] MEDS: D5LR 1,000 ML IV SCH (15:42)
--- NOTE | 2017-07-09 16:56 | Operative Note ---
DATE OF SERVICE 07/09/2017 PREOPERATIVE DIAGNOSES 1. Nonreassuring heart tones. 2. Severe preeclampsia. 3. Type 2 diabetes. 4. Obesity. 5. Failed induction of labor. POSTOPERATIVE DIAGNOSES 1. Nonreassuring heart tones. 2. Severe preeclampsia. 3. Type 2 diabetes. 4. Obesity. PROCEDURE Primary low transverse section via Pfannenstiel incision. SURGEON Gian Eddy DO RAILROAD COOK Delilah Angeles MD FOOT ORTHOPEDIST Garfield Muñoz, MARKETING ANALYTICS SPECIALIST ANESTHESIA Epidural. ESTIMATED BLOOD LOSS 600 mL. FINDINGS Viable female infant without Apgars of , weight 2304 g, name "Julita." INDICATIONS FOR PROCEDURE This is a 21-year-old morbidly obese female that underwent an induction of labor secondary to preeclampsia with severe features. She had a Haas bulb for cervical ripening and Pitocin. After approximately five hours of adequate MVUs the patient developed a category II strip with minimal variability and occasionally late that did not resolve. The patient was not progressing through labor and discussion was made with patient to continue risk of induction of labor versus . Discussed the risks, benefits and alternatives to low transverse section including infection, injury to bowel/bladder or bleeding with the need for a transfusion, and . Questions were elicited and answered. This patient decided to proceed with primary low transverse section. NARRATIVE OF PROCEDURE Patient was taken to the operating theatre where epidural anesthesia was found to be adequate. She was prepped and draped in the dorsal supine position with a leftward tilt. A Pfannenstiel skin incision was made approximately 2 cm above the pubic symphysis and carried through to underlying layers to the fascia. The fascia was incised in the midline. The fascial incision was then extended laterally with the Foreman scissors. The superior aspect of the fascial incision was grasped with a Alverto clamp, elevated and the rectus muscles dissected off sharply. Attention was turned to the inferior aspect of the fascial incision which was grasped with Alverto clamp, elevated and rectus muscles dissected off sharply. The rectus muscles were then bluntly in the midline and the peritoneum was grasped with a Carlene clamp, elevated and entered sharply with Metzenbaum scissors. The peritoneal incision was then extended superiorly and inferiorly with good visualization of the bladder. The bladder blade was placed and the vesicouterine peritoneum was identified, grasped with smooth pickups, elevated and entered sharply. This incision was then extended laterally and the bladder flap was created digitally. At this time the uterine incision was made in a transverse fashion. The uterine incision was then extended laterally with cephalad and caudad vectors. The infant's head was delivered followed by the body. Nose and mouth were suctioned by the transmission repairer. The cord was clamped and cut and the was taken to the warmer. The placenta was then expressed. The uterus was exteriorized and cleared of all clot and debris. The uterine incision was repaired with 0-Monocryl in running locked fashion. Excellent hemostasis was noted and the uterus was returned to the abdomen. The peritoneal incision was then repaired with 3-0 Monocryl in a running fashion. The fascia was closed with 0-Vicryl in a running fashion. The subcuticular layer was closed with 3-0 plain gut and the skin was closed with 4-0 Monocryl in a running fashion and Dermabond. The patient tolerated the procedure well. Sponge, lap and needle counts were correct x 2. The patient was taken to the recovery room in stable condition. ERIN
[2017-07-09] MEDS ORDERED: CephALEXin 250 MG/5 ML ORAL LIQUID PO SCH (17:00)
[2017-07-09] MEDS: SIMETHICONE 80 MG CHEWABLE TABLET PO SCH ×2 (22:47→23:56)
[2017-07-09] MEDS: MetroNIDAZOLE 500 MG TABLET PO SCH (22:47)
[2017-07-10] MEDS: MetroNIDAZOLE 500 MG TABLET PO SCH ×3 (00:01→19:43)
[2017-07-10] MEDS: MAGNESIUM SULFATE DRIP 20 GM/500 ML BAG IV SCH ×2 (02:10→13:19)
[2017-07-10] MEDS: D5LR 1,000 ML IV SCH (02:35)
[2017-07-10] MEDS: SIMETHICONE 80 MG CHEWABLE TABLET PO SCH ×3 (09:16→19:42)
[2017-07-10] MEDS: DOCUSATE CALCIUM 240 MG CAPSULE PO SCH (09:16)
[2017-07-10] MEDS: IBUPROFEN 800 MG TABLET PO PRN ×2 (09:16→17:24)
--- NOTE | 2017-07-10 09:42 | OB/GYN Progress Note ---
OB-PP Progress Note - General PPD1 Maternal blood type: O+ Maternal Rubella Status: Immune - Subjective Date: 07/10/17 Lochia: Minimal Pain: controlled Voiding: bello still in place Nausea or Vomiting Present: No - Objective Vital Signs: Last Vital Signs Temp 98.3 F 07/10/17 07:00 Pulse 110 H 07/10/17 09:00 Resp 20 07/10/17 07:58 BP 128/65 07/10/17 09:00 Pulse Ox 98 07/10/17 09:00 Urine Output: good (Diuresing well ) General: alert and oriented Respiratory: non-labored Abdomen: fundus firm, non-tender, soft, non-distended Incision: clean, no erythema, dry, intact Extremities: non-tender Laboratory: Laboratory Results - last 24 hr 07/09/17 07/09/17 07/09/17 10:55 10:55 20:07 WBC 11.6 H 13.5 H RBC 4.50 4.10 Hgb 12.8 11.4 L Hct 37.3 34.1 L MCV 82.9 83.2 MCH 28.4 27.8 MCHC 34.3 33.4 RDW Std Deviation 43.4 43.4 Plt Count 158 143 MPV 12.5 H 12.2 Immature Gran % (Auto) Not performed Neut % (Auto) Not performed Lymph % (Auto) Not performed Yell % (Auto) Not performed Eos % (Auto) Not performed Baso % (Auto) Not performed Neut # (Auto) Not performed Lymph # (Auto) Not performed Yell # (Auto) Not performed Eos # (Auto) Not performed Baso # (Auto) Not performed Abs Immat Gran (auto) Not performed Neutrophils % (Manual) 85.0 H Band Neutrophils % Lymphocytes % (Manual) 10.0 L Monocytes % (Manual) 4.0 Eosinophils % (Manual) Basophils % (Manual) Metamyelocytes % 1.0 H Neutrophils # (Manual) 9.9 H Band Neutrophils # Lymphocytes # (Manual) 1.2 Monocytes # (Manual) 0.5 Eosinophils # (Manual) Basophils # (Manual) Metamyelocytes # 0.1 RBC Morph Comment Normal Turbidity < 20 Sodium 135 Potassium 3.9 Chloride 106 Carbon Dioxide 19 L Anion Gap 10 BUN 6.0 L Creatinine 0.5 L GFR Calculation 153 BUN/Creatinine Ratio 12 Glucose 123 H Calculated Osmolality 259 L Calcium 7.8 L Total Bilirubin 0.30 Conjugated Bilirubin Unconjugated Bilirubin Icterus Index < 2 AST 44 H ALT 80 H Alkaline Phosphatase 192 H Total Protein 6.6 Albumin 3.7 Globulin 2.9 Albumin/Globulin Ratio 1.3 Specimen Hemolysis < 15 07/09/17 07/10/17 07/10/17 20:07 02:09 02:09 WBC 12.4 H RBC 3.84 L Hgb 11.0 L Hct 32.0 L MCV 83.3 MCH 28.6 MCHC 34.4 RDW Std Deviation 43.9 Plt Count 132 MPV 13.0 H Immature Gran % (Auto) Neut % (Auto) Lymph % (Auto) Yell % (Auto) Eos % (Auto) Baso % (Auto) Neut # (Auto) Lymph # (Auto) Yell # (Auto) Eos # (Auto) Baso # (Auto) Abs Immat Gran (auto) Neutrophils % (Manual) 83.0 H Band Neutrophils % 0.0 Lymphocytes % (Manual) 9.0 L Monocytes % (Manual) 8.0 Eosinophils % (Manual) 0.0 Basophils % (Manual) 0.0 Metamyelocytes % Neutrophils # (Manual) 10.3 H Band Neutrophils # 0.0 Lymphocytes # (Manual) 1.1 Monocytes # (Manual) 1.0 H Eosinophils # (Manual) 0.0 Basophils # (Manual) 0.0 Metamyelocytes # RBC Morph Comment Normal Turbidity < 20 < 20 Sodium 135 134 Potassium 3.8 3.9 Chloride 104 106 Carbon Dioxide 21 L 21 L Anion Gap 10 7 BUN 6.0 L 6.0 L Creatinine 0.6 L 0.6 L GFR Calculation 124 124 BUN/Creatinine Ratio 10 10 Glucose 118 H 121 H Calculated Osmolality 259 L 257 L Calcium 7.2 L 7.1 L Total Bilirubin < 0.10 L 0.20 Conjugated Bilirubin 0.00 Unconjugated Bilirubin 0.00 Icterus Index < 2 < 2 AST 59 H 52 H ALT 100 H 93 H Alkaline Phosphatase 159 H 129 H Total Protein 6.1 L 5.8 L Albumin 3.3 L 3.0 L Globulin 2.8 2.8 Albumin/Globulin Ratio 1.2 1.1 Specimen Hemolysis < 15 34 H 07/10/17 07/10/17 07:45 07:45 WBC 9.3 RBC 3.75 L Hgb 10.6 L Hct 31.7 L MCV 84.5 MCH 28.3 MCHC 33.4 RDW Std Deviation 44.9 Plt Count 122 L MPV 12.2 Immature Gran % (Auto) Neut % (Auto) Lymph % (Auto) Yell % (Auto) Eos % (Auto) Baso % (Auto) Neut # (Auto) Lymph # (Auto) Yell # (Auto) Eos # (Auto) Baso # (Auto) Abs Immat Gran (auto) Neutrophils % (Manual) 85.0 H Band Neutrophils % 2.0 Lymphocytes % (Manual) 8.0 L Monocytes % (Manual) 5.0 Eosinophils % (Manual) Basophils % (Manual) Metamyelocytes % Neutrophils # (Manual) 7.9 H Band Neutrophils # 0.2 Lymphocytes # (Manual) 0.7 L Monocytes # (Manual) 0.5 Eosinophils # (Manual) Basophils # (Manual) Metamyelocytes # RBC Morph Comment Normal Turbidity < 20 Sodium 137 Potassium 3.6 Chloride 106 Carbon Dioxide 25 Anion Gap 6 BUN 5.0 L Creatinine 0.6 L GFR Calculation 124 BUN/Creatinine Ratio 8 Glucose 90 Calculated Osmolality 261 Calcium 6.9 L Total Bilirubin < 0.10 L Conjugated Bilirubin Unconjugated Bilirubin Icterus Index < 2 AST 44 H ALT 93 H Alkaline Phosphatase 131 H Total Protein 5.8 L Albumin 3.0 L Globulin 2.8 Albumin/Globulin Ratio 1.1 Specimen Hemolysis < 15 - Assessment (1) Status post primary low transverse section Status: Acute (2) Severe pre-eclampsia, delivered, current hospitalization Status: Acute (3) Pregestational diabetes mellitus, modified White class B Status: Acute - Plan DC magnesium & bello at 1330. Her AST/ALT are trending down, but her platelets are also trending down. Recheck labs tomorrow AM. FBS 109 this AM, so will continue to hold her metformin.
--- NOTE | 2017-07-10 12:46 | Anesthesia Postoperative Note ---
- Date and Time Date: 07/10/17 Time: 12:46 - Status Patient Participated in Evaluation: Patient Participated in Person Vital Signs: Temperature 97.8 F 07/10/17 11:00 Pulse Rate 98 07/10/17 11:00 Respiratory Rate 20 07/10/17 11:00 Blood Pressure 118/59 07/10/17 11:00 Pulse Oximetry 97 07/10/17 11:00 Respiratory Function: Airway Patent Mental Status: Alert and Oriented Pain Intensity: 0 Hydration: Taking PO Fluids Complications During Recover: None Apparent - Follow-Up Instructions Instructions: Per Surgeon
[2017-07-11] MEDS: SIMETHICONE 80 MG CHEWABLE TABLET PO SCH ×5 (00:36→22:10)
[2017-07-11] MEDS: HYDROCODONE/APAP 5mg/325mg TABLET PO PRN ×3 (00:36→20:36)
[2017-07-11] MEDS: MetroNIDAZOLE 500 MG TABLET PO SCH ×3 (00:58→18:00)
[2017-07-11] MEDS: IBUPROFEN 800 MG TABLET PO PRN ×2 (00:59→09:02)
[2017-07-11] MEDS: DOCUSATE CALCIUM 240 MG CAPSULE PO SCH (09:02)
--- NOTE | 2017-07-11 15:11 | OB/GYN Progress Note ---
OB-PP Progress Note - General PPD2 POD:: POD2 Maternal Group B Strep: Negative Maternal blood type: O+ Maternal Rubella Status: Immune - Subjective Date: 07/11/17 Lochia: Minimal Pain: controlled Voiding: voiding Nausea or Vomiting Present: No - Objective Vital Signs: Last Vital Signs Temp 98.2 F 07/11/17 13:00 Pulse 97 07/11/17 13:00 Resp 18 07/11/17 13:00 BP 138/88 07/11/17 13:00 Pulse Ox 98 07/11/17 13:00 Urine Output: good General: alert and oriented Cardiovascular: regular rate,rhythm Respiratory: non-labored Abdomen: fundus firm, non-tender Incision: normal, clean, dry, intact Extremities: non-tender Laboratory: Laboratory Results - last 24 hr 07/08/17 07/11/17 07/11/17 22:56 05:13 05:13 WBC 7.7 RBC 3.75 L Hgb 10.4 L Hct 32.4 L MCV 86.4 MCH 27.7 MCHC 32.1 RDW Std Deviation 46.4 Plt Count 127 L MPV 12.2 Lupus Anticoag PT 10.0 L Lupus Anticoag INR 0.9 Lupus Anticoag aPTT 25 L LA dRVVT Screen Ratio 0.9 Lupus Anticoag Interp See below Turbidity < 20 Sodium 140 Potassium 4.2 Chloride 109 H Carbon Dioxide 25 Anion Gap 6 BUN 10.0 D Creatinine 0.6 L GFR Calculation 124 BUN/Creatinine Ratio 17 Glucose 78 Calculated Osmolality 267 Calcium 8.5 D Total Bilirubin < 0.10 L Icterus Index < 2 AST 37 H ALT 89 H Alkaline Phosphatase 110 Total Protein 5.9 L Albumin 3.0 L Globulin 2.9 Albumin/Globulin Ratio 1.0 L Specimen Hemolysis < 15 Beta-2-GPI IgG Ab <9.4 Beta-2-GPI IgM Ab <9.4 Anti-Cardiolipin IgG Ab <9.4 Anti-Cardiolipin IgM Ab <9.4 - Assessment (1) Status post primary low transverse section Status: Acute (2) Severe pre-eclampsia, delivered, current hospitalization Status: Acute (3) Pregestational diabetes mellitus, modified White class B Status: Acute - Assessment Assessment: SP, Primary C/S - Plan Plan: routine care
[2017-07-11] MEDS: ACETAMINOPHEN 500 MG TABLET PO PRN (17:56)
[2017-07-12] MEDS: ACETAMINOPHEN 500 MG TABLET PO PRN ×2 (02:34→10:22)
--- NOTE | 2017-07-12 09:24 | OB/GYN Progress Note ---
OB-PP Progress Note - General PPD3 POD:: POD3 Maternal Group B Strep: Negative Maternal blood type: O+ Maternal Rubella Status: Immune - Subjective Date: 07/12/17 Lochia: Minimal Pain: controlled Voiding: voiding Nausea or Vomiting Present: No - Objective Vital Signs: Last Vital Signs Temp 98.1 F 07/12/17 06:20 Pulse 88 07/12/17 06:20 Resp 16 07/12/17 06:20 BP 137/77 07/12/17 06:20 Pulse Ox 99 07/12/17 06:20 Urine Output: good General: alert and oriented Cardiovascular: regular rate,rhythm Respiratory: non-labored Abdomen: fundus firm, non-tender Incision: normal, clean, dry, intact Extremities: non-tender Edema: none Laboratory: Laboratory Results - last 24 hr 07/08/17 22:56 Beta-2-GPI IgG Ab <9.4 Beta-2-GPI IgM Ab <9.4 - Assessment (1) Status post primary low transverse section Status: Acute (2) Severe pre-eclampsia, delivered, current hospitalization Status: Acute (3) Pregestational diabetes mellitus, modified White class B Status: Acute - Assessment Assessment: SP, Primary C/S - Plan Plan: routine care, discharge home (Will start zoloft for depression, No NSIADs , F/U 2 wwek BP and Incision check )
[2017-07-12] MEDS: DOCUSATE CALCIUM 240 MG CAPSULE PO SCH (10:09)
[2017-07-12] MEDS: SIMETHICONE 80 MG CHEWABLE TABLET PO SCH (10:22)
[2017-07-12 14:13] VITALS: RESP 18; TEMP 98.2
[2017-07-12 17:33] VITALS: BP 143/92; PULSE 100; O2SAT 100
== END 2017-07-12 18:35 | disposition home or self-care (01) | DRG 765 ==
LOC: MC
PROVIDERS: ADMIT Obstetrics & Gynecology; ATTEND Obstetrics & Gynecology